=== PATIENT | male | born 1970 | race Caucasian/White ===

== ENCOUNTER 2025-03-16 00:19 | Inpatient (IN) | payer BC ==
[2025-03-16] VITALS (11 sets, daily range): BP systolic 124–157; BP diastolic 74–92; PULSE 81–98; RESP 16–25; TEMP 36.5–36.7; O2SAT 92–97
[~2025-03-16] VITALS: Ht 170.2 cm; Wt 81.6 kg
[2025-03-16] MEDS: METHYLPREDNISOLONE SOD SUCC 125MG/2ML (ACT-O-VIAL) IV ONE (00:36)
[2025-03-16] MEDS: ALBUTEROL (0.083%) 2.5MG/3ML NEB HHN ONE ×2 (00:39→03:54)
[2025-03-16] MEDS: IPRATROPIUM BROMIDE (0.02%) 0.5MG/2.5ML NEB HHN ONE (00:39)
[2025-03-16 01:14] LABS: CHLORIDE 112 mEq/L (98-107); POTASSIUM 3.5 mEq/L (3.5-5.1); SODIUM 144 mEq/L (136-145)
[2025-03-16 01:15] LABS: CALCIUM 8.8 mg/dL (8.7-10.4); CARBON DIOXIDE 21 mEq/L (21-32)
[2025-03-16 01:16] LABS: BASOPHILS % 0.8 % (0.0-2.0); HEMATOCRIT. 46.7 % (42.0-52.0); HEMOGLOBIN. 15.7 g/dL (14.0-18.0); LYMPHOCYTES % 38.8 % (20.0-50.0); MEAN CORPUSCULAR HEMOGLOBIN 29.5 pg (28.0-32.0); MEAN CORPUSCULAR HGB CONC 33.5 g/dL (31.0-37.0); MEAN CORPUSCULAR VOLUME 87.9 fL (80.0-94.0); MEAN PLATELET VOLUME 7.4 fl (7.4-10.4); MONOCYTES % 6.2 % (2.0-8.0); NEUTROPHILS % 50.2 % (40.0-76.0); PLATELET 343 x1000/uL (130-400); RED BLOOD CELL COUNT 5.31 mill/uL (4.7-6.1); RED CELL DISTRIBUTION WIDTH 13.9 % (11.6-14.6); WHITE BLOOD COUNT 12.4 x1000/uL (4.5-11.0)
[2025-03-16 01:20] LABS: CREATININE 0.6 mg/dL (0.6-1.3); GLUCOSE 143 mg/dL (70-105); UREA NITROGEN BLOOD 6 mg/dL (9-23)
[2025-03-16 01:21] LABS: ETHANOL BLOOD 224 mg/dL (<10); TROPONIN I HIGH SENSITIVITY 4 ng/L (3.0-53)
[2025-03-16 01:23] LABS: INR 0.9; PROTHROMBIN TIME 10.2 sec (9.6-11.0)
[2025-03-16 02:14] LABS: *AMPHETAMINES SCREEN URINE NEGATIVE (NEGATIVE)
[2025-03-16 02:15] LABS: *BARBITURATES SCREEN URINE NEGATIVE (NEGATIVE); *BENZODIAZEPINES SCREEN URINE NEGATIVE (NEGATIVE); *COCAINE SCREEN URINE NEGATIVE (NEGATIVE); CANNABINOID URINE SCREEN NEGATIVE (NEGATIVE); ECSTASY MDMA SCREEN URINE NEGATIVE (NEGATIVE); METHADONE URINE SCREEN NEGATIVE (NEGATIVE); OPIATES URINE SCREEN NEGATIVE (NEGATIVE); PHENCYCLIDINE URINE SCREEN NEGATIVE (NEGATIVE)
[2025-03-16] MEDS ORDERED: METHYLPREDNISOLONE SOD SUCC 40MG/ML (ACT-O-VIAL) IV SCH (07:45)
[2025-03-16] MEDS ORDERED: DEXTROSE 50% WATER 50ML SYRINGE IV PRN ×2 (07:45→08:15)
[2025-03-16] MEDS ORDERED: ACETAMINOPHEN 325MG TABLET PO PRN (07:45)
[2025-03-16] MEDS ORDERED: BUDESONIDE 0.5MG/2ML NEB HHN SCH (07:45)
[2025-03-16] MEDS ORDERED: ONDANSETRON HCL 4MG/2ML INJ IV PRN (07:45)
[2025-03-16] MEDS ORDERED: IPRATROPIUM/ALBUTEROL 0.5-3(2.5)MG/3ML NEB HHN SCH (08:00)
[2025-03-16] MEDS ORDERED: FAMOTIDINE 20MG/2ML VIAL IV SCH (09:00)
[2025-03-16] MEDS ORDERED: ENOXAPARIN 40MG/0.4ML SYR SUBCUT SCH (09:00)
[2025-03-16] MEDS: METHYLPREDNISOLONE SOD SUCC 125MG/2ML (ACT-O-VIAL) IV SCH (09:02)
[2025-03-16] MEDS: CEFTRIAXONE 1GM/50ML 50 ML IV SCH (09:02)
[2025-03-16] MEDS: PANTOPRAZOLE SODIUM 40 MG/VIAL IV SCH (09:02)
[2025-03-16] MEDS: ENOXAPARIN 40MG/0.4ML SYR SUBCUT SCH (09:03)
[2025-03-16] MEDS ORDERED: BLOOD SUGAR DIAGNOSTIC STRIP TEST SCH (11:45)
[2025-03-16] MEDS: BLOOD SUGAR DIAGNOSTIC STRIP TEST SCH (12:03)
[2025-03-16] MEDS ORDERED: INSULIN LISPRO 100 UNITS/ML SUBCUT SCH (12:15)
[2025-03-16] MEDS: BUDESONIDE 0.5MG/2ML NEB HHN SCH (12:29)
[2025-03-16] MEDS: IPRATROPIUM/ALBUTEROL 0.5-3(2.5)MG/3ML NEB HHN SCH (12:32)
[2025-03-16] MEDS: INSULIN LISPRO 100 UNITS/ML SUBCUT SCH (13:21)
[2025-03-17] VITALS: BP 117/60; PULSE 89; PULSE 93; RESP 18; RESP 20; TEMP 36.8; O2SAT 94
[2025-03-17 04:00] VITALS: BP 144/69; PULSE 99; RESP 18; TEMP 36.8; O2SAT 95
[2025-03-17 04:15] VITALS: PULSE 82; RESP 20
[2025-03-17 07:26] LABS: HEMATOCRIT. 42.5 % (42.0-52.0); HEMOGLOBIN. 14.6 g/dL (14.0-18.0); MEAN CORPUSCULAR HEMOGLOBIN 29.7 pg (28.0-32.0); MEAN CORPUSCULAR HGB CONC 34.3 g/dL (31.0-37.0); MEAN CORPUSCULAR VOLUME 86.6 fL (80.0-94.0); MEAN PLATELET VOLUME 7.8 fl (7.4-10.4); PLATELET 302 x1000/uL (130-400); RED BLOOD CELL COUNT 4.91 mill/uL (4.7-6.1); WHITE BLOOD COUNT 19.7 x1000/uL (4.5-11.0)
[2025-03-17 07:33] VITALS: PULSE 83; RESP 18
[2025-03-17 07:40] LABS: CHLORIDE 104 mEq/L (98-107); POTASSIUM 3.8 mEq/L (3.5-5.1); SODIUM 140 mEq/L (136-145)
[2025-03-17 07:41] LABS: CALCIUM 9.2 mg/dL (8.7-10.4); CARBON DIOXIDE 26 mEq/L (21-32)
[2025-03-17 07:46] LABS: CREATININE 0.6 mg/dL (0.6-1.3); GLUCOSE 171 mg/dL (70-105); UREA NITROGEN BLOOD 11 mg/dL (9-23)
[2025-03-17 07:55] LABS: DIFFERENTIAL COMMENT 1
[2025-03-17 08:00] VITALS: BP 105/60; PULSE 85; RESP 20; TEMP 36.6; O2SAT 95
[2025-03-17] MEDS ORDERED: ALBU18HF2 IH (08:59)
[2025-03-17] MEDS ORDERED: METH4TAB95 MT (08:59)
[2025-03-17] MEDS ORDERED: LEVO750T68 MT (08:59)
[2025-03-17 09:24] VITALS: BP 137/73; PULSE 83; TEMP 97.8; O2SAT 97
[2025-03-17 13:29] LABS: PLATELET ESTIMATE NORMAL
== END 2025-03-17 10:25 | disposition home or self-care (01) | DRG 190 ==
LOC: ER 00:19 → 5WST 02:52 → EDBEDREQTM 03:09 → EDBEDREQ 03:09 → EDBEDREQSVC 03:09 → ENRESERV 03:15
PROVIDERS: ADMIT Internal Medicine; ATTEND Internal Medicine
PROC: 5A09357 Assistance with Respiratory Ventilation, Less than 24 Consecutive Hours, Continuous Positive Airway Pressure (ICD-10-PCS; principal; 2025-03-16)
DX: J44.1 Chronic obstructive pulmonary disease with (acute) exacerbation (principal); J18.9 Pneumonia, unspecified organism; J44.0 Chronic obstructive pulmonary disease with (acute) lower respiratory infection; J40 Bronchitis, not specified as acute or chronic; Y90.9 Presence of alcohol in blood, level not specified; D72.829 Elevated white blood cell count, unspecified; R73.9 Hyperglycemia, unspecified; F17.210 Nicotine dependence, cigarettes, uncomplicated; F10.90 Alcohol use, unspecified, uncomplicated; Z79.899 Other long term (current) drug therapy
CPT/HCPCS: 36415; 71045; 80048; 80305; 80320; 82962; 83036; 83880; 84484; 85025; 93005; 94070; 94640; 94660; 94664; 99285; J0696; J1650; J1815; J2470; J2919; J7626; G0480